=== PATIENT | male | born 1950 | race African-American/Black ===

== ENCOUNTER 2020-09-12 22:21 | Inpatient (IN) | payer MEDICARE ==
[~2020-09-12 22:21] MED LIST: Amiodarone 150 MG/3 ML VIAL ONE; Calcium Chloride 1 GM/10 ML Abboject SYRINGE ONE; EPINEPHrine 1 MG/10 ML Abboject SYRINGE ONE; Sodium Bicarb 50 MEQ/50 ML Abboject 8.4% SYRINGE ONE
[2020-09-12] MEDS ORDERED: Norepinephrine 8 MG/0.9% NS 250 ML ONE (22:42)
[2020-09-12 22:52] LABS: #Eosinphils 0.1 thou/uL (0.0-0.7); #Lymphocytes 3.2 thou/uL (1.20-3.40); #Monocytes 1.1 thou/uL (0.11-0.59); #Neutrophils 15.2 thou/uL (1.40-6.50); %Basophils 0.2 % (0.0-1.0); %Eosinophils 0.8 % (0.0-10.0); %Lymphocytes 16.4 % (21.0-51.0); %Monocytes 5.5 % (0.0-10.0); %Neutrophils 77.1 % (42.0-75.0); Hemoglobin 7.8 g/dL (14.0-18.0); Mean Corpuscular HGB CONC 30.4 g/dL (32.0-36.0); Mean Platelet Volume 10.4 fL (7.4-10.4); Platelet Count 283 thou/uL (130-400); Red Blood Cell (RBC) Count 2.51 mill/uL (4.70-6.10); White Blood Cell (WBC) Count 19.6 thou/uL (4.8-10.8)
[2020-09-12 22:53] LABS: Actual Bicarbonate (HCO3a) 8.6 mEq/L (22-28); Base Excess (BEa) -24.2 mEq/L (-2.0 to +3.0); CO2 Tension 52.9 mmHg (35.0-45.0); Calcium, Ionized (arterial) 1.49 mmol/L (1.12-1.30); Carboxyhemoglobin (COHb) 0.8 gm% (0.0-3.0); Hemoglobin (Hb) 8.4 g/dL (14.0-18.0); O2 Tension (PaO2), arterial 83.4 mmHg (> 80.0); Potassium - ABG Lab 5.18 mmol/L (3.70-5.30)
[2020-09-12 22:55] LABS: ALV-art Gradient 563.475 mmHg (0-20); Puncture Site LRA; pH, Arterial 6.83 (7.35-7.45)
--- NOTE | 2020-09-12 22:57 | RAD ---
RADIOGRAPH CHEST 1 VIEW: Supine DATE: 09/12/2020 TIME: 10:37 PM HISTORY: 70-year-old male in respiratory failure COMPARISON: 12/20/2007 FINDINGS: Supine positioning makes this study insensitive for the detection of pneumothorax. New finding of diffuse bilateral interstitial and alveolar infiltrates. Cardiomegaly. ETT 7.5 cm superior to dante. Esophagogastric tube distal tip at esophagogastric junction. AICD with left-sided generator, new since prior study. Right-sided implantable vascular access port with distal tip overlying right atrium, new since prior study. Defibrillation paddle overlies right upper lung zone. IMPRESSION: 1) diffuse bilateral mixed interstitial and alveolar densities: Pulmonary edema versus pneumonia. 2) status post intubation with endotracheal tube 3) esophagogastric tube distal tip at esophagogastric junction.
[2020-09-12 23:07] LABS: ALT (SGPT) 147 U/L (8-55); AST (SGOT) 225 U/L (5-34); Albumin 2.8 g/dL (3.4-4.8); Alkaline Phosphatase 50 U/L (40-110); Anion Gap 27 mmol/L (10-20); BUN (Urea Nitrogen) 22 mg/dL (8.4-25.7); Bilirubin, Total 0.4 mg/dL (0.2-1.2); Calc. Creatinine Clearance 0 mL/min (70-130); Calcium 10.1 mg/dL (7.8-10.44); Chloride 103 mmol/L (98-107); Globulin 2.3 g/dL (2.4-3.5); Glucose 425 mg/dL (80-115); Potassium 5.3 mmol/L (3.5-5.1); Protein, Total 5.1 g/dL (5.8-8.1); Sodium 133 mmol/L (136-145)
[2020-09-12 23:24] LABS: Carbon Dioxide 8 mmol/L (23-31)
[2020-09-12 23:27] LABS: CKMB 1.9 ng/mL (0-6.6)
[2020-09-12] MEDS ORDERED: Fentanyl CADD 100 ML IV SCH (23:30)
[2020-09-12 23:32] LABS: Bilirubin Negative (Negative); Blood, Urine 1+ (Negative); Clarity Turbid (Clear); Glucose, Urine (Dipstick) 100 mg/dL (Negative); Ketone, Urine Negative (Negative); Leukocyte Negative Leu/uL (Negative); Mucous/LPF Rare LPF (<2+); Nitrite Negative (Negative); Protein, Urine (Dipstick) 100 mg/dL (Neg-Trace); Specific Gravity, Urine 1.013 (1.002-1.036); Squamous Epithelial 0-3 HPF (0-3); Urobilinogen Normal mg/dL (Less than 2); WBC/HPF 0-3 HPF (0-3); pH, Urine 5.5 (5.0-9.0)
[2020-09-12 23:40] LABS: Bacteria/HPF 2+ HPF (None Seen)
[2020-09-12 23:45] LABS: SARS-CoV-2 NAA Rapid Test DETECTED (NotDetected)
[2020-09-13 00:52] LABS: Troponin I 0.257 ng/mL (< 0.028)
[2020-09-13] MEDS ORDERED: Propofol 1,000 MG/100 ML VIAL IV ONE ×2 (01:00→10:46)
[2020-09-13] MEDS ORDERED: Sodium Bicarbonate 100 MEQ in Dextrose 5% in Water 1,000 ML IV SCH ×2 (01:00→02:17)
--- NOTE | 2020-09-13 01:07 | PDOC.HHP ---
Hospitalist HPI Cardiac arrest History of Present Illness: This is a 70-year-old male patient with a history of lymphoma on chemotherapy, diabetes mellitus, hypertension, heart failure with reduced fraction, A. fib and recently positive for Covid who was brought in by air ambulance on account of cardiac arrest. Records noted that patient was having some chest pain with palpitations and noted that he received a shock from his defibrillator. During transport he became unresponsive and became pulseless. CPR was initiated and was defibrillated 2 times. He also received a dose of epinephrine. At the time of presentation here patient was still unresponsive and required further CPR lasting for over 30 minutes. ROSC was eventually obtained. He was intubated for airway protection. His labs at presentation showed WBC of 19.6, hemoglobin 9.8, platelet count 283. Chemistry showed Lactic acidosis of 15.1, sodium was 133, potassium 5.3, bicarbonate, creatinine 1.71, glucose 425, AST 225, ALT 147, troponin 0.1. His Covid test turned out positive. Chest x-ray showed diffuse bilateral mixed interstitial and alveolar densiti espulmonary edema versus pneumonia. EKG showed paced rhythm with no ST or T wave changes suggestive of ischemia. He received 2 L normal saline of bicarb. Also multiple resuscitation not associated medications. Central line was placed and was added on Levophed for blood pressure support. Hospitalist team was consulted to admit. Allergies/Adverse Reactions: Allergy/AdvReac Type Severity Reaction Status Date / Time gabapentin Allergy Verified 09/13/20 01:36 pregabalin [From Lyrica] Allergy Verified 09/13/20 01:36 tramadol Allergy Verified 09/13/20 01:37 Past History: PMHx: Heart failure with reduced ejection fraction, lymphoma, A. fib, PSHx: FHx: Social: Hospitalist HPI ROS ROS unobtainable: due to mental status Hospitalist Exam General - other findings: Obtunded, on ventilator support. Eye - other findings: Pupils reactive but sluggish Heart: RRR, no murmur, no gallops Respiratory - other findings: Coarse breath sounds bilaterally. Gastrointestinal: soft, non-tender, non-distended Extremities: no cyanosis, no clubbing Neurological - other findings: No spontaneous movements.Patient CD10 Psychiatric - other findings: Unable to assess Hospitalist Results Result Diagrams: 09/14/20 03:50 09/14/20 03:50 Lab results: Laboratory Last Values WBC 19.6 thou/uL (4.8-10.8) H 09/12/20 22:40 RBC 2.51 mill/uL (4.70-6.10) L 09/12/20 22:40 Hgb 7.8 g/dL (14.0-18.0) L 09/12/20 22:40 Hct 25.5 % (42.0-52.0) L 09/12/20 22:40 MCV 102.0 fL (78.0-98.0) H 09/12/20 22:40 MCH 31.0 pg (27.0-31.0) 09/12/20 22:40 MCHC 30.4 g/dL (32.0-36.0) L 09/12/20 22:40 RDW 17.0 % (11.5-14.5) H 09/12/20 22:40 Plt Count 283 thou/uL (130-400) 09/12/20 22:40 MPV 10.4 fL (7.4-10.4) 09/12/20 22:40 Neutrophils % 77.1 % (42.0-75.0) H 09/12/20 22:40 Lymphocytes % 16.4 % (21.0-51.0) L 09/12/20 22:40 Monocytes % 5.5 % (0.0-10.0) 09/12/20 22:40 Eosinophils % 0.8 % (0.0-10.0) 09/12/20 22:40 Basophils % 0.2 % (0.0-1.0) 09/12/20 22:40 Neutrophils # 15.2 thou/uL (1.40-6.50) H 09/12/20 22:40 Lymphocytes # 3.2 thou/uL (1.20-3.40) 09/12/20 22:40 Monocytes # 1.1 thou/uL (0.11-0.59) H 09/12/20 22:40 Eosinophils # 0.1 thou/uL (0.0-0.7) 09/12/20 22:40 Basophils # 0.0 thou/uL (0.0-0.2) 09/12/20 22:40 Specimen Type ARTERIAL 09/12/20 22:37 Puncture Site LRA 09/12/20 22:37 Bicarbonate Actual 8.6 mEq/L (22-28) L 09/12/20 22:37 ABG pH 6.83 (7.35-7.45) L* 09/12/20 22:37 ABG pCO2 52.9 mmHg (35.0-45.0) H 09/12/20 22:37 ABG pO2 83.4 mmHg (> 80.0) H 09/12/20 22:37 ABG O2 Sat (Measured) 82.0 % (94.0-98.0) L* 09/12/20 22:37 ABG O2 Content 9.7 vol% (18.0-21.0) L 09/12/20 22:37 ABG Base Excess -24.2 mEq/L (-2.0 to +3.0) L 09/12/20 22:37 ABG Hematocrit 25.0 % (42.0-52.0) L 09/12/20 22:37 ABG Hemoglobin 8.4 g/dL (14.0-18.0) L 09/12/20 22:37 ABG Oxyhemoglobin 81.1 % (94.0-98.0) L 09/12/20 22:37 ABG Carboxyhemoglobin 0.8 gm% (0.0-3.0) 09/12/20 22:37 ABG Methemoglobin 0.30 gm% (0.04-1.52) 09/12/20 22:37 ABG Deoxyhemoglobin 17.8 % (0.0-2.9) H 09/12/20 22:37 Jean Pierre Test POSITIVE 09/12/20 22:37 A-a O2 Gradient 563.475 mmHg (0-20) H 09/12/20 22:37 Sodium 135 mmol/L (135-148) 09/12/20 22:37 Potassium 5.18 mmol/L (3.70-5.30) 09/12/20 22:37 Chloride 101 mmol/L (98-106) 09/12/20 22:37 Ionized Calcium 1.49 mmol/L (1.12-1.30) H 09/12/20 22:37 Mode of Support SIMV 09/12/20 22:37 Mechanical Rate 22 min 09/12/20 22:37 Inspired O2 100 % 09/12/20 22:37 Tidal Volume 500 ml 09/12/20 22:37 Pressure Support 10 cmH2O 09/12/20 22:37 PEEP or CPAP 12.0 cmH2O 09/12/20 22:37 Sodium 133 mmol/L (136-145) L 09/12/20 22:39 Potassium 5.3 mmol/L (3.5-5.1) H 09/12/20 22:39 Chloride 103 mmol/L (98-107) 09/12/20 22:39 Carbon Dioxide 8 mmol/L (23-31) L* 09/12/20 22:39 Anion Gap 27 mmol/L (10-20) H 09/12/20 22:39 BUN 22 mg/dL (8.4-25.7) 09/12/20 22:39 Creatinine 1.71 mg/dL (0.7-1.3) H 09/12/20 22:39 Estimated GFR (MDRD) 48 09/12/20 22:39 Glucose 425 mg/dL (80-115) H 09/12/20 22:39 POC Glucose 327 mg/dL (70-100) H 09/12/20 22:29 Lactic Acid 15.1 mmol/L (0.5-2.2) H* 09/12/20 20:37 Calcium 10.1 mg/dL (7.8-10.44) 09/12/20 22:39 Total Bilirubin 0.4 mg/dL (0.2-1.2) 09/12/20 22:39 AST 225 U/L (5-34) H 09/12/20 22:39 ALT 147 U/L (8-55) H 09/12/20 22:39 Alkaline Phosphatase 50 U/L (40-110) 09/12/20 22:39 CK-MB (CK-2) 1.9 ng/mL (0-6.6) 09/12/20 22:39 Troponin I 0.257 ng/mL (< 0.028) H 09/13/20 00:14 Serum Total Protein 5.1 g/dL (5.8-8.1) L 09/12/20 22:39 Albumin 2.8 g/dL (3.4-4.8) L 09/12/20 22:39 Globulin 2.3 g/dL (2.4-3.5) L 09/12/20 22:39 Albumin/Globulin Ratio 1.2 g/dL (1.2-2.2) 09/12/20 22:39 Urine Color Light-Yellow (Yellow) 09/12/20 23:02 Urine Clarity Turbid (Clear) A 09/12/20 23:02 Urine pH 5.5 (5.0-9.0) 09/12/20 23:02 Ur Specific [place] 1.013 (1.002-1.036) 09/12/20 23: Urine Protein 100 mg/dL (Neg-Trace) A 09/12/20 23: Urine Glucose (UA) 100 mg/dL (Negative) A 09/12/20 23: Urine Ketones Negative mg/dL (Negative) 09/12/20 23: Urine Blood 1+ (Negative) A 09/12/20 23: Urine Nitrite Negative (Negative) 09/12/20 23: Urine Bilirubin Negative (Negative) 09/12/20 23: Urine Urobilinogen Normal mg/dL (Less than 2) 09/12/20 23:02 Ur Leukocyte Esterase Negative Vladimir/uL (Negative) 09/12/20 23:02 Urine RBC 11-20 HPF (0-3) A 09/12/20 23:02 Urine WBC 0-3 HPF (0-3) 09/12/20 23:02 Ur Squamous Epith Cells 0-3 HPF (0-3) 09/12/20 23:02 Amorphous Crystals 1+ HPF (None Seen) A 09/12/20 23:02 Urine Bacteria 2+ HPF (None Seen) A 09/12/20 23:02 Hyaline Casts 7-10 LPF (0-3) A 09/12/20 23:02 Urine Mucus Rare LPF (<2+) 09/12/20 23: Influenza A RNA INAAT Not Detected (NotDetected) 09/12/20 22:51 Influenza B RNA INAAT Not Detected (NotDetected) 09/12/20 22:51 SARS-CoV-2 Rap RNA(RT-PCR) DETECTED (NotDetected) A* 09/12/20 22:51 Hospitalist H&P A/P Plan: This is a 70-year-old male patient with a history of heart failure with reduced ejection fraction, AICD in place, CKD, recently diagnosed with lymphoma on chemotherapy recent Covid diagnosis, was brought into the ED on account of cardiac arrest. ROSC was achieved and is currently on ventilator and pressor support. Cardiac arrest Unclear etiology. No concerning EKG changes Possible arrhythmia as requested that his AICD fired. Could be PE given his history of lymphoma with high predisposition although he appears to have been on Eliquis. Combination of Covid/lymphoma could make him quite hypercoagulable Continue ventilator support CTA to evaluate for PEstart full anticoagulation once post Received hypothermia Pulmonary evaluation in morning. Acute hypoxic respiratory failure Hypoxia could be due to pulmonary edema, pneumonia due to Covid, bacterial pneumonia Patient intubated for airway protection given his cardiac arrest Patient on 100% FiO2 with saturation in the 90s. Initial bicarb was 6.8 and improved to 7.08 Continue bicarb drip monitor ABG Appreciate pulmonology input. Pneumonia due to Covid Patient Covid positive with bilateral infiltrates Start steroids Vitamin C/D and zinc CRP, ferritin and D-dimer Consider remdesivir/plasma Hyperkalemia Presenting potassium of 5.3 We will monitor Consult nephrology if worsens. Severe metabolic acidosis Secondary to lactic acidosis Lactic acid at 15we will trend Received IV fluids Septic shock Leukocytosis with respiratory failure with shock We will start vancomycin and Zosyn Received IV fluids Trend lactate Follow-up blood cultures Heart failure with reduced ejection fraction EF in the 20s as per his course of white documents. We will monitor closely and restrict fluids as much as possible. A. fib Currently not in RVR We will monitorpatient on home Eliquis Resume anticoagulants once verified. Recently diagnosed lymphoma Currently receiving chemotherapy Consult heme-onc if indicated. General poor clinical prognosis I discussed with daughter and mother about clinical state and explained the prognosis however they still wanted full code We will consult palliative care for goals of care discussion VT prophylaxisLovenox CODE STATUSfull code
[2020-09-13] MEDS ORDERED: Fentanyl BOLUS 250 ML IVPB PRN (01:15)
[2020-09-13] MEDS ORDERED: Morphine 2 MG/ML VIAL SLOW IVP PRN (01:15)
[2020-09-13] MEDS ORDERED: Ventilator Sedation Protocol 1 EACH FS SCH (01:15)
[2020-09-13] MEDS ORDERED: Propofol 1,000 MG/100 ML VIAL IV PRN (01:15)
[2020-09-13] MEDS ORDERED: DISCONTINUE PREVIOUS NARCOTIC PAIN MEDICATIONS AND BENZODIAZEPINES FS SCH (01:15)
[2020-09-13] MEDS ORDERED: Lorazepam 2 MG/ML VIAL SLOW IVP PRN (01:15)
[2020-09-13] MEDS ORDERED: Propofol BOLUS 1,000 MG/100 ML VIAL IV PRN (01:15)
[2020-09-13 01:50] LABS: Actual Bicarbonate (HCO3a) 9.7 mEq/L (22-28); Base Excess (BEa) -18.9 mEq/L (-2.0 to +3.0); CO2 Tension 33.2 mmHg (35.0-45.0); Calcium, Ionized (arterial) 1.24 mmol/L (1.12-1.30); Carboxyhemoglobin (COHb) 0.3 gm% (0.0-3.0); Hemoglobin (Hb) 9.1 g/dL (14.0-18.0); O2 Tension (PaO2), arterial 185.4 mmHg (> 80.0)
[2020-09-13 02:35] LABS: Hemoglobin 8.7 g/dL (14.0-18.0); Mean Corpuscular HGB CONC 29.8 g/dL (32.0-36.0); Mean Corpuscular Hemoglobin 29.8 pg (27.0-31.0); Mean Platelet Volume 10.5 fL (7.4-10.4); Platelet Count 339 thou/uL (130-400); RBC Distribution Width 16.8 % (11.5-14.5); Red Blood Cell (RBC) Count 2.91 mill/uL (4.70-6.10); White Blood Cell (WBC) Count 43.7 thou/uL (4.8-10.8)
[2020-09-13 02:47] LABS: Band 17 % (5-11); Hypochromia SLIGHT = 6-15 cells (100X) (0-5/hpf); Lymphocytes 2 % (21-51); MDiff Complete? YES; Monocytes 17 % (0-10); Neutrophil 64 % (42-75); Platelet Morphology Comment Appears Adequate
[2020-09-13 02:55] LABS: ALT (SGPT) 367 U/L (8-55); AST (SGOT) 707 U/L (5-34); Alkaline Phosphatase 114 U/L (40-110); Anion Gap 28 mmol/L (10-20); BUN (Urea Nitrogen) 26 mg/dL (8.4-25.7); Bilirubin, Total 1.3 mg/dL (0.2-1.2); Calc. Creatinine Clearance 42 mL/min (70-130); Carbon Dioxide 8 mmol/L (23-31); Chloride 104 mmol/L (98-107); Globulin 2.9 g/dL (2.4-3.5); Glucose 357 mg/dL (80-115); Magnesium 2.1 mg/dL (1.6-2.6); Protein, Total 5.9 g/dL (5.8-8.1); Sodium 134 mmol/L (136-145)
[2020-09-13] MEDS ORDERED: Lorazepam 2 MG/ML VIAL ONE (04:40)
[2020-09-13] MEDS ORDERED: Norepinephrine 8 MG/0.9% NS 250 ML ONE ×4 (04:43→16:56)
[2020-09-13] MEDS ORDERED: Vancomycin 1.5 GRAM/300 ML BAG 1.5 GM in Premix Bag 1 BAG IVPB SCH (05:00)
[2020-09-13] MEDS: Norepinephrine 8 MG/0.9% NS 250 ML IVPB PRN ×2 (05:02→20:33)
[2020-09-13 05:07] LABS: Puncture Site LBA; pH, Arterial 7.08 (7.35-7.45)
[2020-09-13] MEDS ORDERED: Piperacillin/Tazobactam 4.5 GM VIAL ONE ×2 (05:23→17:02)
[2020-09-13] MEDS ORDERED: Sodium Chloride 0.9% 100 ML ONE (05:23)
[2020-09-13] MEDS ORDERED: Insulin Regular 300 UNITS/3 ML VIAL IVP SCH (05:30)
[2020-09-13] MEDS ORDERED: Insulin Regular 300 UNITS/3 ML VIAL ONE (05:33)
[2020-09-13] MEDS ORDERED: Calcium Gluc 4.6 MEQ/10 ML (100 MG/ML) ONE (05:33)
[2020-09-13] MEDS ORDERED: Dextrose 50% Abboject 50 ML SYRINGE ONE (05:33)
[2020-09-13] MEDS ORDERED: Calcium Gluconate 4.6 MEQ in Sodium Chloride 0.9% 100 ML IVPB SCH (05:45)
[2020-09-13] MEDS ORDERED: Dextrose 25% Abboject 10 ML SYRINGE SLOW IVP SCH (05:45)
[2020-09-13 05:55] LABS: Lactic Acid 10.3 mmol/L (0.5-2.2)
[2020-09-13 06:07] LABS: Troponin I 0.716 ng/mL (< 0.028)
[2020-09-13] MEDS: Piperacillin/Tazobactam 4.5 GM in Sodium Chloride 0.9% 100 ML IVPB SCH ×3 (06:19→21:59)
[2020-09-13] MEDS ORDERED: Enoxaparin Sodium 80 MG/0.8 ML SYRINGE SC SCH (06:30)
[2020-09-13] MEDS ORDERED: Enoxaparin Sodium 80 MG/0.8 ML SYRINGE ONE (07:05)
[2020-09-13 07:36] LABS: Actual Bicarbonate (HCO3a) 11.6 mEq/L (22-28); Base Excess (BEa) -17.4 mEq/L (-2.0 to +3.0); CO2 Tension 40.4 mmHg (35.0-45.0); Calcium, Ionized (arterial) 1.22 mmol/L (1.12-1.30); Carboxyhemoglobin (COHb) 0.3 gm% (0.0-3.0); Hemoglobin (Hb) 9.2 g/dL (14.0-18.0); O2 Tension (PaO2), arterial 101.3 mmHg (> 80.0); Potassium - ABG Lab 5.32 mmol/L (3.70-5.30)
[2020-09-13 07:41] LABS: Puncture Site RRA; pH, Arterial 7.08 (7.35-7.45)
--- NOTE | 2020-09-13 08:06 | CT ---
CTA OF THE CHEST UTILIZING IV CONTRAST PE PROTOCOL 3D REFORMATTED IMAGING: Date: 09/13/2020 COMPARISON: Prior chest radiograph dated 09/12/2020. FINDINGS: The patient is intubated with gastric catheter placement. There is cardiomegaly. There is perihilar i nterstitial ground-glass opacity suspicious for edema. There is prominent consolidation of both lower lobes suspicious for aspiration or pneumonia. No central or segmental pulmonary embolus is evident. There is a right-sided IJ vascular catheter. There is a left-sided AICD. Visualized upper abdomen de monstrates reflux of contrast within the IVC, hepatic veins, and right renal vein. No definite acute osseous abnormality is evident. There is scattered degenerative and osteoarthritic change. IMPRESSION: 1. Findings suspicious for moderate CHF. 2. Bibasilar consolidation suspicious for aspiration or pneumonia. 3. No central or segmental pulmonary embolus demonstrated. POS: BH
[2020-09-13] MEDS ORDERED: Enoxaparin Sodium 40 MG/0.4 ML SYRINGE SC SCH (09:00)
[2020-09-13] MEDS ORDERED: Iopamidol-370 76% 500 ML 1 ML ONE (10:32)
--- NOTE | 2020-09-13 11:31 | CON ---
DATE OF CONSULTATION: HISTORY OF PRESENT ILLNESS: Vinayak Centeno is a 70-year-old black male with history of ejection fraction of 20%, biventricular ICD, and chronic atrial fibrillation. He also has a recent diagnosis of lymphoma and is on chemotherapy. The patient is intubated and cannot give any history. There is no family present. Yesterday, he apparently noted chest pain and palpitations and received a shock from his defibrillator. Paramedics were called. He then became unresponsive and pulseless and CPR was initiated and defibrillated x2 as well as given IV epinephrine. Apparently, CPR was in progress for over 30 minutes when he arrived here. He was then intubated and apparently coded here in the emergency room, but at the present time has a pulse. PAST MEDICAL HISTORY: Cardiomyopathy of unknown etiology. Ejection fraction of 20%. Chronic atrial fibrillation, lymphoma. MEDICATIONS: Unknown. ALLERGIES: UNKNOWN. SOCIAL HISTORY: Unobtainable. FAMILY HISTORY: Unobtainable. REVIEW OF SYSTEMS: Unobtainable. PHYSICAL EXAMINATION: VITAL SIGNS: Blood pressure 108/71, pulse of 84. Physical examination was deferred due to COVID positivity. LABORATORY DATA: EKG revealed biventricular pacing. Chest x-ray reveals a biventricular defibrillator in place with bilateral infiltrates. Chest CTA revealed no evidence of pulmonary embolism. Findings were suggestive of moderate congestive heart failure. White count 06297, hemoglobin 8.7, hematocrit 29.1, platelets 339,000. PH is low at 6.83. Most recent blood gas; pH 7.08, pCO2 of 40.4, PO2 of 101.3. Troponin I 0.716. Sodium 134, potassium 6.0, chloride 104, carbon dioxide 8, BUN 26, creatinine 2.01. AST is increased to 707, ALT up to 367. IMPRESSION: 1. Cardiac arrest apparently with ICD discharge and then prolonged CPR. 2. Known ejection fraction of 20%. 3. Status post biventricular ICD placement. 4. History of lymphoma, currently on chemotherapy. 5. COVID positive. 6. Acute kidney injury and elevated liver function test, probably due to hepatic congestion. PLAN: The patient is being treated with steroids for his COVID positivity. He will continue to be maintained on pressors. He likely has had anoxic brain injury with prolonged CPR. I do not feel that any emergent cardiac intervention is warranted. I will follow the patient with you. Job ID: [id number] [facility]
--- NOTE | 2020-09-13 14:12 | PDOC.HOSPP ---
- Subjective Encounter Date: 09/13/20 Encounter Time: 11:55 Subjective: Patient seen he is on vent. Daughter came by, [Patient lives with his ]; discussed the care plan with her today. His ICD was checked to roughly a month ago in August. . Patient is getting bicarbonate infusion. Severe metabolic acidosis. I talked to Dr. Howard's groove and who would see him. Both cardiology, renal and pulmonary on board - Objective Vital Signs & Weight: Vital Signs (12 hours) Temp Pulse Resp BP BP Pulse Ox 09/13/20 07:30 84 108/71 09/13/20 05:02 91.2 F L 92 30 H 112/82 94 L 09/13/20 02:33 106 H 90/55 L 96 Weight Weight 185 lb 3.013 oz Result Diagrams: 09/13/20 01:41 09/13/20 01:41 Additional Labs: Accuchecks 09/12/20 22:29 POC Glucose 327 H Hospitalist ROS - Medication Medications: Active Medications Generic Name Dose Route Start Last Admin Trade Name Freq PRN Reason Stop Dose Admin Norepinephrine Bitartrate 250 mls @ 0 mls/hr 09/13/20 01:02 09/13/20 05:02 Levophed IVPB 250 mls PRN PRN Administration To maintain MAP > 65 Protocol Titrate Piperacillin Sod/Tazobactam 100 mls @ 200 mls/hr 09/13/20 06:00 09/13/20 06:19 Sod 4.5 gm/ Sodium Chloride IVPB 100 mls Q8HR MATEO Administration Propofol 20 mg 09/13/20 01:15 09/13/20 01:42 Propofol Bolus 1,000 Mg/100 Ml Vial IV 10/13/20 01:15 20 mg Q5MIN PRN Administration BREAKTHROUGH AGITATION Sodium Chloride 10 ml 09/13/20 09:00 09/13/20 09:32 Flush - Normal Saline 10 Ml Syringe IVF 10 ml Q12HR MATEO Administration Hospitalist Exam Vitals: Vital Signs (12 hours) Temp Pulse Resp BP BP Pulse Ox 09/13/20 07:30 84 108/71 09/13/20 05:02 91.2 F L 92 30 H 112/82 94 L 09/13/20 02:33 106 H 90/55 L 96 Weight Weight 185 lb 3.013 oz General - other findings: On vent Eye: PERRL ENT: normocephalic atraumatic Neck: supple Respiratory: normal chest expansion Psychiatric: not oriented Hosp A/P - Plan 70-year-old male patient with a history of heart failure with reduced ejection fraction, AICD in place, CKD, recently diagnosed with lymphoma on chemotherapy recent Covid diagnosis, was brought into the ED on account of cardiac arrest. ROSC was achieved and is currently on ventilator and pressor support. Cardiac arrest -Prolonged CPR -Possible anoxic brain injury Possible arrhythmia as requested that his AICD fired. Continue ventilator support -On pressors CTA to evaluate for PEnegative PE Received hypothermia Acute hypoxic respiratory failure Hypoxia could be due to pulmonary edema, pneumonia due to Covid, bacterial pneumonia --On vent Pneumonia due to Covid Patient Covid positive with bilateral infiltrates Start steroids Vitamin C/D and zinc CRP, ferritin and D-dimer Consider remdesivir/plasma Hyperkalemia Severe metabolic acidosis Secondary to lactic acidosis -Renal following with Septic shock --Follow-up with blood cultures --vancomycin and Zosyn -On pressor Heart failure with reduced ejection fraction EF in the 20s -Dr. Dr. Howard's group -likely they will see him this afternoon A. fib Currently not in RVR -eilquis Recently diagnosed lymphoma Currently receiving chemotherapy . General poor clinical prognosis -I have seen the daughter this morning -Will update her as the clinical course evolves -Full code for now. -Palliative consult placed by the admitter -Neurology consult to evaluate for possible anoxic brain injury
--- NOTE | 2020-09-13 16:35 | CON ---
NEUROLOGY CONSULTATION DATE OF CONSULTATION: 09/13/2020 REASON FOR CONSULTATION: Cardiac arrest. HISTORY OF PRESENT ILLNESS: Mr. Vinayak Centeno is a 70-year-old male with medical history significant for lymphoma on chemotherapy, diabetes, hypertension, congestive heart failure with reduced ejection fraction, atrial fibrillation, and recently positive for COVID, brought by ambulance because of cardiac arrest. No family is available at the bedside, so history is obtained from review of the medical records. Per record, he had chest pain and palpitation and received shock from defibrillator. During transport, he became unresponsive and pulseless, so CPR was initiated and he was defibrillated 2 times. He also received a dose of epinephrine. COVID was tested, it turned out positive. Chest x-ray showed diffuse bilateral mixed interstitial and alveolar densities, pulmonary edema versus pneumonia. He was intubated and sedated and started on Levophed for blood pressure support. Neurology was consulted regarding prognosis. ALLERGIES: GABAPENTIN, PREGABALIN, TRAMADOL. REVIEW OF SYSTEMS: Unobtainable due to the patient's mental status. PAST MEDICAL HISTORY: Heart failure with reduced ejection fraction, lymphoma, atrial fibrillation. PAST SURGICAL HISTORY: Not significant. FAMILY HISTORY: No significant family history. SOCIAL HISTORY: No documented history of alcohol or illegal drug abuse. PHYSICAL EXAMINATION: 117/68 88 98 General: Ill-appearing CVS: Regular rate and rhythm Chest: Rales Abdomen: Soft Neurologic: Mental status: The patient is obtunded, intubated and sedated. Does not open eyes to verbal stimuli. Cranial nerves; pupils 3 mm, round, very sluggishly responsive to light. Face symmetric. Tongue midline. No gaze preference or roving eye movement seen. Motor, muscle tone and bulk are normal. No spontaneous movement of all 4 extremities seen. Sensory, no withdrawal of all 4 extremities to nailbed pressure. Cerebellar; unable to perform secondary to sedation. Gait deferred due to the patient's safety reason and unable due to sedation. DATA REVIEWED: I reviewed the labs which were significant for white count of 43.7, hemoglobin of 8.7, hematocrit 29.1, and also hyponatremia 134 and hyperkalemia 6 and BUN of 26 and creatinine of 2.01, hyperglycemia 357. Lab results: Laboratory Last Values WBC 19.6 thou/uL (4.8-10.8) H 09/12/20 22:40 RBC 2.51 mill/uL (4.70-6.10) L 09/12/20 22:40 Hgb 7.8 g/dL (14.0-18.0) L 09/12/20 22:40 Hct 25.5 % (42.0-52.0) L 09/12/20 22:40 MCV 102.0 fL (78.0-98.0) H 09/12/20 22:40 MCH 31.0 pg (27.0-31.0) 09/12/20 22:40 MCHC 30.4 g/dL (32.0-36.0) L 09/12/20 22:40 RDW 17.0 % (11.5-14.5) H 09/12/20 22:40 Plt Count 283 thou/uL (130-400) 09/12/20 22:40 MPV 10.4 fL (7.4-10.4) 09/12/20 22:40 Neutrophils % 77.1 % (42.0-75.0) H 09/12/20 22:40 Lymphocytes % 16.4 % (21.0-51.0) L 09/12/20 22:40 Monocytes % 5.5 % (0.0-10.0) 09/12/20 22:40 Eosinophils % 0.8 % (0.0-10.0) 09/12/20 22:40 Basophils % 0.2 % (0.0-1.0) 09/12/20 22:40 Neutrophils # 15.2 thou/uL (1.40-6.50) H 09/12/20 22:40 Lymphocytes # 3.2 thou/uL (1.20-3.40) 09/12/20 22:40 Monocytes # 1.1 thou/uL (0.11-0.59) H 09/12/20 22:40 Eosinophils # 0.1 thou/uL (0.0-0.7) 09/12/20 22:40 Basophils # 0.0 thou/uL (0.0-0.2) 09/12/20 22:40 Specimen Type ARTERIAL 09/12/20 22:37 Puncture Site LRA 09/12/20 22:37 Bicarbonate Actual 8.6 mEq/L (22-28) L 09/12/20 22:37 ABG pH 6.83 (7.35-7.45) L* 09/12/20 22:37 ABG pCO2 52.9 mmHg (35.0-45.0) H 09/12/20 22:37 ABG pO2 83.4 mmHg (> 80.0) H 09/12/20 22:37 ABG O2 Sat (Measured) 82.0 % (94.0-98.0) L* 09/12/20 22:37 ABG O2 Content 9.7 vol% (18.0-21.0) L 09/12/20 22:37 ABG Base Excess -24.2 mEq/L (-2.0 to +3.0) L 09/12/20 22:37 ABG Hematocrit 25.0 % (42.0-52.0) L 09/12/20 22:37 ABG Hemoglobin 8.4 g/dL (14.0-18.0) L 09/12/20 22:37 ABG Oxyhemoglobin 81.1 % (94.0-98.0) L 09/12/20 22:37 ABG Carboxyhemoglobin 0.8 gm% (0.0-3.0) 09/12/20 22:37 ABG Methemoglobin 0.30 gm% (0.04-1.52) 09/12/20 22:37 ABG Deoxyhemoglobin 17.8 % (0.0-2.9) H 09/12/20 22:37 Jean Pierre Test POSITIVE 09/12/20 22:37 A-a O2 Gradient 563.475 mmHg (0-20) H 09/12/20 22:37 Sodium 135 mmol/L (135-148) 09/12/20 22:37 Potassium 5.18 mmol/L (3.70-5.30) 09/12/20 22:37 Chloride 101 mmol/L (98-106) 09/12/20 22:37 Ionized Calcium 1.49 mmol/L (1.12-1.30) H 09/12/20 22:37 Mode of Support SIMV 09/12/20 22:37 Mechanical Rate 22 min 09/12/20 22:37 Inspired O2 100 % 09/12/20 22:37 Tidal Volume 500 ml 09/12/20 22:37 Pressure Support 10 cmH2O 09/12/20 22:37 PEEP or CPAP 12.0 cmH2O 09/12/20 22:37 Sodium 133 mmol/L (136-145) L 09/12/20 22:39 Potassium 5.3 mmol/L (3.5-5.1) H 09/12/20 22:39 Chloride 103 mmol/L (98-107) 09/12/20 22:39 Carbon Dioxide 8 mmol/L (23-31) L* 09/12/20 22:39 Anion Gap 27 mmol/L (10-20) H 09/12/20 22:39 BUN 22 mg/dL (8.4-25.7) 09/12/20 22:39 Creatinine 1.71 mg/dL (0.7-1.3) H 09/12/20 22:39 Estimated GFR (MDRD) 48 09/12/20 22:39 Glucose 425 mg/dL (80-115) H 09/12/20 22:39 POC Glucose 327 mg/dL (70-100) H 09/12/20 22:29 Lactic Acid 15.1 mmol/L (0.5-2.2) H* 09/12/20 20:37 Calcium 10.1 mg/dL (7.8-10.44) 09/12/20 22:39 Total Bilirubin 0.4 mg/dL (0.2-1.2) 09/12/20 22:39 AST 225 U/L (5-34) H 09/12/20 22:39 ALT 147 U/L (8-55) H 09/12/20 22:39 Alkaline Phosphatase 50 U/L (40-110) 09/12/20 22:39 CK-MB (CK-2) 1.9 ng/mL (0-6.6) 09/12/20 22:39 Troponin I 0.257 ng/mL (< 0.028) H 09/13/20 00:14 Serum Total Protein 5.1 g/dL (5.8-8.1) L 09/12/20 22:39 Albumin 2.8 g/dL (3.4-4.8) L 09/12/20 22:39 Globulin 2.3 g/dL (2.4-3.5) L 09/12/20 22:39 Albumin/Globulin Ratio 1.2 g/dL (1.2-2.2) 09/12/20 22:39 Urine Color Light-Yellow (Yellow) 09/12/20 23: Urine Clarity Turbid (Clear) A 09/12/20 23: Urine pH 5.5 (5.0-9.0) 09/12/20 23: Ur Specific [place] 1.013 (1.002-1.036) 09/12/20 23: Urine Protein 100 mg/dL (Neg-Trace) A 09/12/20 23: Urine Glucose (UA) 100 mg/dL (Negative) A 09/12/20 23: Urine Ketones Negative mg/dL (Negative) 09/12/20 23: Urine Blood 1+ (Negative) A 09/12/20 23: Urine Nitrite Negative (Negative) 09/12/20 23: Urine Bilirubin Negative (Negative) 09/12/20 23: Urine Urobilinogen Normal mg/dL (Less than 2) 09/12/20 23: Ur Leukocyte Esterase Negative Vladimir/uL (Negative) 09/12/20 23: Urine RBC 11-20 HPF (0-3) A 09/12/20 23: Urine WBC 0-3 HPF (0-3) 09/12/20 23:02 Ur Squamous Epith Cells 0-3 HPF (0-3) 09/12/20 23: Amorphous Crystals 1+ HPF (None Seen) A 09/12/20 23: Urine Bacteria 2+ HPF (None Seen) A 09/12/20 23: Hyaline Casts 7-10 LPF (0-3) A 09/12/20 23: Urine Mucus Rare LPF (<2+) 09/12/20 23:02 Influenza A RNA INAAT Not Detected (NotDetected) 09/12/20 22:51 Influenza B RNA INAAT Not Detected (NotDetected) 09/12/20 22:51 SARS-CoV-2 Rap RNA(RT-PCR) DETECTED (NotDetected) A* 02 22:51 ASSESSMENT AND PLAN: Mr. Vinayak Centeno is a 70-year-old male with history significant for congestive heart failure with reduced ejection fraction, AICD in place, chronic kidney disease and recently diagnosed with lymphoma, status post chemotherapy and tested positive for COVID, brought to the emergency room with cardiac arrest. The exam is, however, limited secondary to sedation prognosis seems poor for functional meaningful recovery. Consider head CT to evaluate for acute intracranial process. EEG could not be completed secondary to the patient's COVID positive status. Neuro checks every 2 hours. Continue medical management per primary team and Pulmonology. We will continue to follow. Thank you for the consult. Job ID: [id number] MTDD
--- NOTE | 2020-09-13 18:42 | CON ---
DATE OF CONSULTATION: 09/13/2020 HISTORY: Mr. Centeno is a 70-year-old male, who has severe cardiomyopathy and a defibrillator in place. He also has lymphoma. He apparently had a defibrillator shock and was unresponsive when the machine stuffer automatic arrived. He had over 30 minutes of CPR. He was also coded again in the emergency department. I was consulted. PAST MEDICAL HISTORY: Remarkable for the above. SOCIAL HISTORY: It is unknown whether he is a smoker or drinker. FAMILY HISTORY: Unknown. REVIEW OF SYSTEMS: Not obtainable. PHYSICAL EXAMINATION: GENERAL: He is hypothermic. VITAL SIGNS: Blood pressure is around 100 systolic, heart rates in 80s. LUNGS: Remarkable for equal breath sounds. HEART: Regular rhythm. ABDOMEN: Soft. He is mechanically ventilated. LABORATORY DATA: White count at 1 o'clock this morning was 43,000, hemoglobin 8.7, platelets 339,000. Sodium 134, potassium 6, chloride 104, bicarb 8, BUN 26, creatinine 2.01. COVID serology is positive. Urinalysis is unremarkable. Blood gas shows pH 7.08, CO2 of 40, pO2 of 103, mechanical ventilatory rates at 30. IMPRESSION: Status post prolonged CPR with severe cardiomyopathy, likely an anoxic brain injury. My opinion is he is unlikely to survive. Family should be contacted and his code status should be addressed. It would be of no benefit for him to go through another code. Critical care time 30 min. Job ID: [id number] MTDD
[2020-09-13] MEDS ORDERED: FLU VACC QS2020-21(65YR UP)/PF 240 MCG/0.7 ML SYRINGE IM ONE (19:45)
--- NOTE | 2020-09-13 20:23 | CON ---
DATE OF CONSULTATION: CONSULTING PHYSICIAN: Latisha Joseph MD REQUESTING PHYSICIAN: Brady Hobson MD REASON FOR CONSULTATION: Acute on chronic kidney disease as well as severe hyperkalemia, metabolic acidosis. IMPRESSION: 1. Acute on chronic renal disease. This is likely hemodynamically mediated in the context of cardiac arrest. 2. Metabolic acidosis. This is likely in the context of lactic acidosis resulting from cardiac arrest. 3. Hyperkalemia, likely due to cellular shift of potassium given the metabolic acidosis in this patient compounded by reduced EGFR due to acute kidney injury. 4. Cardiac arrest, status post prolonged CPR. 5. Possible anoxic brain injury. 6. Mild hyponatremia. PLAN: 1. The patient to continue bicarb drip to address the metabolic acidosis with cellular shift of potassium. 2. The patient may have suffered significant anoxic brain injury. Therefore, for now, we will focus on medical management of the metabolic acidosis and the hyperkalemia. However, this medical approach does not address these conditions and the patient remains full code and reviewed option of treatment, still needed hemodialysis might become indicated. 3. Further management will be dependent on the clinical course. HISTORY OF PRESENT ILLNESS: History is that of a 70-year-old gentleman with cardiomyopathy status post AICD who apparently had some cardiac arrhythmias cardiac arrest. The patient did undergo prolonged CPR by the EMS . The patient clinically is intubated and could not offer much of any history. The patient noted with elevated potassium at 5.3 with bicarb of 8 with a pH of 7.08. As a result of these findings, decision was taken to involve Renal in the management of this case. PAST MEDICAL HISTORY: Significant for cardiomyopathy status post AICD, possible chronic kidney disease. Recent diagnosis of lymphoma and also atrial fibrillation. ALLERGIES: PREGABALIN, TRAMADOL, AND GABAPENTIN. FAMILY HISTORY: Could not be obtained from this patient. SOCIAL HISTORY: Could not be obtained from this patient. REVIEW OF SYSTEMS: Could not be done. LABORATORY INVESTIGATION: Significant as documented in the body of the history. PHYSICAL EXAMINATION: GENERAL: The patient is found to be intubated. VITAL SIGNS: Afebrile, temperature 91.2 as the patient is on hypothermic protocol, pulse of 84, blood pressure of 108/71, respiratory rate of 10, O2 saturation of 94%. HEENT: Remarkable for endotracheal tube in place. CARDIOVASCULAR SYSTEM: First and second heart sounds heard. RESPIRATORY SYSTEM: Vented sounds. DIGESTIVE SYSTEM: Benign abdomen. EXTREMITIES: No peripheral edema. SKIN: No new gross rash. LYMPHATICS: No peripheral lymphadenopathy. In summary, a 70-year-old gentleman who has cardiac arrest, now with severe metabolic acidosis, hyperkalemia, acute on chronic kidney disease. Thank you for this consultation. We will follow with you. Job ID: [id number]
[2020-09-13] MEDS: Enoxaparin Sodium 80 MG/0.8 ML SYRINGE SC SCH (21:14)
[2020-09-13] MEDS: Sodium Bicarbonate 150 MEQ in Dextrose 5% in Water 1,000 ML IV SCH (22:23)
--- NOTE | 2020-09-13 22:30 | CON ---
DATE OF CONSULTATION: 09/13/2020 HISTORY OF PRESENT ILLNESS: Mr. Centeno is a well-known patient of ours, seen most recently in our clinic in August 19, 2020. Currently, he is intubated on the critical care unit at [facility] after earlier today suffering [id number] cardiac arrest with multiple ICD therapies. He has been admitted and found to have COVID positive with white count of 43.7, hemoglobin 7.8, lactate 12.0, as well as a variety of other issues including metabolic acidosis, shock liver, KIM, etc. He carries a longstanding history of nonischemic cardiomyopathy with EF in 2019 of 15% to 20%. Dr. Isaiah Howard implanted [employer] EQUIPMENT TESTER-D in December of 2019, with only minimal improvement in EF post implant. He has history of atrial fibrillation with amiodarone and Eliquis long-term as well as typical atrial flutter. His cardiac care was managed by Dr. Aamir Reis, line construction supervisor at [facility] in [place]. Interrogation of his EQUIPMENT TESTER-D by myself at bedside shows that he had developed persistent atrial fibrillation over the last 24 to 48 hours. As well He had multiple episodes of VT and VF today. He had several ICD shocks earlier today for both (inappropriate) AF w/RVR and VT/VF. I have reviewed all of the tracings, 95 episodes in total, the majority of the episodes are atrial fibrillation with an RVR that unfortunately fell into the VT zone causing inappropriate ICD shocks. One of the ICD therapies (stim) actually accelerated AF with RVR into VT subsequently requiring repeat ICD therapy. There are several other episodes of what appear to be VT and VF on the device as well. He had ACLS by EMS providers and then again in the ER. He was subsequently intubated and put on a variety of medications including pressors in the ICU. He has already been seen by Cardiology, Neurology, Pulmonary/Critical Care, by Internal Medicine Service, and Nephrology Service. At the time of my dictation, he is intubated and currently with a sinus rhythm and biventricular pacing. PAST MEDICAL HISTORY: 1. Nonischemic cardiomyopathy with ejection fraction 15% to 20% by most recent echo. 2. Paroxysmal atrial fibrillation - on amiodarone and Eliquis. 3. Typical atrial flutter - CTI performed in January [address] Lamar. 4. Dyslipidemia. 5. Lymphoma - by our last note was actually in remission, may have had a recent recurrence. 6. Hypertension. MEDICATIONS: His home medications included; 1. Eliquis 5 mg b.i.d. 2. Entresto 24/ b.i.d. 3. Glipizide 5 mg daily. 4. Lasix 40 mg b.i.d. 5. Lovastatin 20 mg at bedtime. 6. Metformin 500 mg daily. 7. Prilosec 20 mg daily. 8. Amiodarone 200 mg daily. 9. Potassium 20 mEq b.i.d. SOCIAL HISTORY: He is and has multiple children, who are involved in his care. REVIEW OF SYSTEMS: Currently unobtainable. The patient is intubated and sedated. PHYSICAL EXAMINATION: Limited due to COVID-19 status. Vitals: blood pressure 98/69, pulse of 98, and O2 saturation 100% on intubation. Telemetry, sinus rhythm with biventricular pacing. LABORATORY DATA: As per HPI. White count elevated atraumatically, hemoglobin 8.7, lactate markedly elevated. Chest x-ray and CT of the chest notable for increased pulmonary vasculature. IMPRESSION: 1. Cardiac arrest with multiple defibrillator shocks and prolonged cardiopulmonary resuscitation both by EMS and then again in the ER. 2. Nonischemic cardiomyopathy with EF 20% prior to hospitalization. 3. [employer] EQUIPMENT TESTER-D implanted. 4. Paroxysmal atrial fibrillation - most recently developed persistent AF w/RVR in the VT zone causing ICD shocks, now in sinus rhythm after multiple shocks. 5. COVID-19 positive. 6. Acute on chronic kidney failure. 7. Elevated LFTs, likely secondary to above. PLAN: Case discussed with hospital team. Currently, his ICD therapies have been discontinued as it would be impossible to program him to avoid inappropriate ICD shocks for AFib with RVR in the VT zone, while also maintaining an appropriate VT zone to provide ICD therapies. Therefore, we will disable tachy therapies for the moment, we have left all of his pacing parameters in place. We will continue to follow along. Given his prolonged period of time requiring CPR, he has a poor prognosis currently. Family members have been involved in the care, they currently request full code. We will continue to follow along for now. Further recommendations as clinical course dictates. Job ID: [id number] [facility]
[2020-09-14] MEDS: Norepinephrine 8 MG/0.9% NS 250 ML IVPB PRN ×7 (00:14→23:16)
[2020-09-14] MEDS: VANCOMYCIN 1.25 GM/250 ML BAG 1.25 GM in Premix Bag 1 BAG IVPB SCH (03:35)
[2020-09-14 04:23] LABS: Band 18 % (5-11); Hemoglobin 8.7 g/dL (14.0-18.0); Lymphocytes 1 % (21-51); MDiff Complete? YES; Mean Corpuscular HGB CONC 30.8 g/dL (32.0-36.0); Mean Corpuscular Hemoglobin 29.7 pg (27.0-31.0); Mean Corpuscular Volume 96.3 fL (78.0-98.0); Mean Platelet Volume 11.1 fL (7.4-10.4); Monocytes 1 % (0-10); Neutrophil 80 % (42-75); Platelet Count 206 thou/uL (130-400); Platelet Morphology Comment Appears Adequate; RBC Distribution Width 16.8 % (11.5-14.5); Red Blood Cell (RBC) Count 2.94 mill/uL (4.70-6.10)
[2020-09-14 04:35] LABS: Anion Gap 23 mmol/L (10-20); BUN (Urea Nitrogen) 38 mg/dL (8.4-25.7); Calc. Creatinine Clearance 26 mL/min (70-130); Calcium 7.6 mg/dL (7.8-10.44); Carbon Dioxide 19 mmol/L (23-31); Chloride 98 mmol/L (98-107); Glucose 446 mg/dL (80-115); Potassium 4.5 mmol/L (3.5-5.1); Sodium 135 mmol/L (136-145)
[2020-09-14] MEDS: Piperacillin/Tazobactam 4.5 GM in Sodium Chloride 0.9% 100 ML IVPB SCH ×3 (05:11→21:40)
[2020-09-14] MEDS: Sodium Bicarbonate 150 MEQ in Dextrose 5% in Water 1,000 ML IV SCH (06:44)
[2020-09-14 07:28] LABS: Actual Bicarbonate (HCO3a) 19.4 mEq/L (22-28); Base Excess (BEa) -3.4 mEq/L (-2.0 to +3.0); CO2 Tension 27.2 mmHg (35.0-45.0); Calcium, Ionized (arterial) 0.98 mmol/L (1.12-1.30); Carboxyhemoglobin (COHb) 0.3 gm% (0.0-3.0); Hemoglobin (Hb) 9.8 g/dL (14.0-18.0); pH, Arterial 7.47 (7.35-7.45)
[2020-09-14 07:37] LABS: Puncture Site RBA
[2020-09-14] MEDS: Enoxaparin Sodium 80 MG/0.8 ML SYRINGE SC SCH ×3 (09:37→20:04)
--- NOTE | 2020-09-14 12:10 | CT ---
CT BRAIN WITHOUT CONTRAST: Date: 09/14/2020 HISTORY: Anoxic brain injury. COMPARISON: None. FINDINGS: There is loss of brar matter differentiation with compression of the ventricles and basilar cisterns. There is prominence of the vessels. There is suggestion of a pseudosubarachnoid hemorrhage sign whic h demonstrates increased density in the basilar cisterns, (though the possibility of some acute subar achnoid hemorrhage cannot be completely excluded). No midline shift or abnormal extra-axial fluid col lections are seen. The bony calvarium is intact. There is soft tissue calcification in the left scalp close to the vertex. IMPRESSION: Findings are consistent with diffuse hypoxic brain injury. Findings discussed over the phone with Dr. Celis at 0911 hours. CODE CR. POS: OFF
--- NOTE | 2020-09-14 13:11 | PDOC.BPN ---
- Brief Progress Note Encounter Date: 09/14/20 HCT reviewed and discussed with radiology. HCT findings consistent with anoxic brain injury. Results communicated to primary attending Dr. Muñoz . Signs of functional meaningful recovery seems poor based on exam and HCT results. Palliative care consult and primary team should address the code status with the family based on the results of the recent imaging. Consider neurosurgery input regarding HCT findings.
--- NOTE | 2020-09-14 15:24 | PDOC.HOSPP ---
- Subjective Encounter Date: 09/14/20 Encounter Time: 10:00 Subjective: Patient seen this morning. He is on the vent. Levophed continued. off fentanyl. Repeat CT scan showed loss of brar matter differentiation with compression of the ventricles and basilar cisterns and the possibility of acute subarachnoid hemorrhage. Patient with no ocular reflex and no meaningful neurological recovery. Possible decortication. Discussed with RN. Talk to the neurosurgery. - Objective Vital Signs & Weight: Vital Signs (12 hours) Temp Pulse Resp Pulse Ox 09/14/20 14:27 99 09/14/20 14:00 24 H 09/14/20 12:00 98.6 F 24 H 09/14/20 11:02 99 09/14/20 10:00 24 H 09/14/20 08:00 99 F 24 H 100 09/14/20 07:39 100 09/14/20 06:00 30 H 09/14/20 04:00 96.9 F L 30 H Weight Admit Weight 178 lb 5.663 oz Weight 178 lb 5.663 oz Most Recent Monitor Data Heart Rate from ECG 101 NIBP 92/54 NIBP BP-Mean 66 Respiration from ECG 24 SpO2 100 I&O: 09/13/20 09/14/20 09/15/20 06:59 06:59 06:59 Intake Total 2615.10 100 Output Total 630 385 Balance 1985.10 -285 Result Diagrams: 09/14/20 03:50 09/14/20 03:50 Hospitalist ROS - Medication Medications: Active Medications Generic Name Dose Route Start Last Admin Trade Name Freq PRN Reason Stop Dose Admin Enoxaparin Sodium 80 mg 09/13/20 21:00 09/14/20 10:07 Enoxaparin Sodium 80 Mg/0.8 Ml Syringe SC Not Given 0900,2100 MATEO Norepinephrine Bitartrate 250 mls @ 0 mls/hr 09/13/20 01:02 09/14/20 12:38 Levophed IVPB 250 mls PRN PRN Administration To maintain MAP > 65 Protocol Titrate Piperacillin Sod/Tazobactam 100 mls @ 200 mls/hr 09/13/20 06:00 09/14/20 14:06 Sod 4.5 gm/ Sodium Chloride IVPB 100 mls Q8HR MATEO Administration Vancomycin HCl 1.25 gm/ Device 250 mls @ 166.67 mls/hr 09/14/20 04:00 09/14/20 03:35 IVPB 250 mls Q24HR@0400 MATEO Administration Sodium Bicarbonate 150 meq/ 1,150 mls @ 125 mls/hr 09/13/20 19:01 09/14/20 06:44 Dextrose/Water IV 1,150 mls INF MATEO Administration Propofol 20 mg 09/13/20 01:15 09/13/20 01:42 Propofol Bolus 1,000 Mg/100 Ml Vial IV 10/13/20 01:15 20 mg Q5MIN PRN Administration BREAKTHROUGH AGITATION Sodium Chloride 10 ml 09/13/20 09:00 09/14/20 09:37 Flush - Normal Saline 10 Ml Syringe IVF 10 ml Q12HR MATEO Administration Hospitalist Exam Vitals: Vital Signs (12 hours) Temp Pulse Resp Pulse Ox 09/14/20 14:27 99 09/14/20 14:00 24 H 09/14/20 12:00 98.6 F 24 H 09/14/20 11:02 99 09/14/20 10:00 24 H 09/14/20 08:00 99 F 24 H 100 09/14/20 07:39 100 09/14/20 06:00 30 H 09/14/20 04:00 96.9 F L 30 H Weight Admit Weight 178 lb 5.663 oz Weight 178 lb 5.663 oz Most Recent Monitor Data Heart Rate from ECG 101 NIBP 92/54 NIBP BP-Mean 66 Respiration from ECG 24 SpO2 100 General Appearance: ill appearing General - other findings: On vent ENT: normocephalic atraumatic Neck: supple Heart: RRR Gastrointestinal: normal bowel sounds Extremities: no cyanosis Neurological: no new deficit, speech deficit, vision deficit Psychiatric: not oriented, lethargic Hosp A/P - Plan 70-year-old male patient with a history of heart failure with reduced ejection fraction, AICD in place, CKD, recently diagnosed with lymphoma on chemotherapy recent Covid diagnosis, was brought into the ED on account of cardiac arrest. ROSC was achieved and is currently on ventilator and pressor support. Cardiac arrest -Prolonged CPR -Possible anoxic brain injury Possible arrhythmia as requested that his AICD fired. Continue ventilator support -On pressors CTA to evaluate for PEnegative PE Received hypothermia Acute hypoxic respiratory failure Hypoxia could be due to pulmonary edema, pneumonia due to Covid, bacterial pneumonia --On vent Pneumonia due to Covid Patient Covid positive with bilateral infiltrates Start steroids Vitamin C/D and zinc CRP, ferritin and D-dimer Consider remdesivir/plasma Hyperkalemia Severe metabolic acidosis Secondary to lactic acidosis -Renal following with Septic shock --Follow-up with blood cultures --vancomycin and Zosyn -On pressor Heart failure with reduced ejection fraction EF in the 20s -Dr. Dr. Howard's group -likely they will see him this afternoon A. fib Currently not in RVR -eilquis Recently diagnosed lymphoma Currently receiving chemotherapy . General poor clinical prognosis -I have seen the daughter this morning -Will update her as the clinical course evolves -Full code for now. -Palliative consult placed by the admitter -Neurology consult to evaluate for possible anoxic brain injury 7th Repeat CT scan showed loss of brar matter differentiation with compression of the ventricles and basilar cisterns and the possibility of acute subarachnoid hemorrhage. Patient with no meaningful neurological recovery. Possible decortication. EEG cannot be performed due to the Covid pneumonia and isolation. talk to the family, daughter at length, and she had plenty of questions. all answered to the best of my ability. [phone]. she wants to know whether her family can visit him. will check with the charge nurse regarding COVID policy.
--- NOTE | 2020-09-14 15:31 | PRG ---
DATE OF SERVICE: 09/14/2020 SUBJECTIVE: Mr. Centeno remains mechanically ventilated in the critical care unit. CT was done of his head today showing loss of brar-white matter differentiation. OBJECTIVE: VITAL SIGNS: Heart rates in the 90s. FiO2 is at 45. Blood pressure is 94/53. General: Still has some spontaneous movement when he is stimulated. LUNGS: Remarkable for equal breath sounds. HEART: Regular rhythm. ABDOMEN: Soft and nontender. EXTREMITIES: Without edema. LABORATORY DATA: White count 19, hemoglobin 8.7, platelets 206, creatinine has gone from 2 to 3.2, potassium 4.5. IMPRESSION: Severe anoxic brain injury after an ejk-nh-dztkxcez arrest. Chances for functional recovery or even survival extremely small. Withdrawal of care would not be unreasonable. Critical care time 30 min. Job ID: [id number] MTDD
--- NOTE | 2020-09-14 15:55 | CON ---
DATE OF CONSULTATION: 09/14/2020 HISTORY OF PRESENT ILLNESS: The patient is a 70-year-old male with a past medical history of CHF, atrial fibrillation, lymphoma, diabetes, hypertension. Recent positive test for COVID, who was brought to the emergency department on 09/12/2020 for acute onset chest pain as well as several defibrillator shocks. During transport, the patient became unresponsive and pulseless, requiring CPR and defibrillation several times. He was intubated and sedated and ultimately admitted to the Medicine Service with consultations for Cardiology, Neurology, Critical Care, and Nephrology. Since his admission, he has had very poor neurologic status. A CT was obtained this morning which appears consistent with anoxic brain injury. Neurosurgery was consulted for evaluation of the patient. PAST MEDICAL HISTORY: Congestive heart failure; lymphoma, on chemotherapy; diabetes; hypertension; atrial fibrillation; recent COVID positive diagnosis. FAMILY HISTORY: Currently unobtainable. SOCIAL HISTORY: Currently unobtainable. REVIEW OF SYSTEMS: Currently unobtainable. PHYSICAL EXAMINATION: VITAL SIGNS: Currently stable. The patient is being mechanically ventilated and afebrile. CONSTITUTIONAL: Currently intubated. Not currently on any sedation since morning. HEAD: Normocephalic and atraumatic. EYES: Pupils are fixed, dilated, and nonreactive. Corneal reflex is absent. ENT: Endotracheal tube is in place. No gag reflex is noted. CHEST: Symmetric chest expansion. The patient is currently being mechanically ventilated. He is not overbreathing the ventilator. CARDIAC: Regular rhythm. MUSCULOSKELETAL: Symmetric pulses. SKIN: Warm. No obvious deformities. NEUROLOGIC: GCS of 3. He does not open his eyes. He is currently intubated. No motor function is appreciated to any sort of noxious stimuli. ASSESSMENT AND PLAN: This is a 70-year-old COVID positive male with a history of atrial fibrillation and CHF, who had suffered cardiac arrest and has had poor neurologic exam since this event. His recent CT head shows massive anoxic brain injury. This is consistent with exam findings which are quite poor. The neurologic prognosis is poor and we are not recommending any neurosurgical intervention. We would recommend Palliative Care meet with family. No further neurosurgical recommendations at this time. Job ID: [id number]
[2020-09-14] MEDS ORDERED: Digoxin 0.5 MG/2 ML AMP SLOW IVP SCH (19:15)
[2020-09-14] MEDS ORDERED: Sodium Chloride 0.9% 1,000 ML IV SCH ×2 (19:15→19:30)
[2020-09-14] MEDS ORDERED: Metoprolol Tartrate 5 MG/5 ML VIAL IVP SCH (20:15)
[2020-09-14] MEDS: Sodium Chloride 0.45% 1,000 ML IV SCH (20:19)
[2020-09-15] MEDS: Norepinephrine 8 MG/0.9% NS 250 ML IVPB PRN ×2 (03:28→08:28)
[2020-09-15] MEDS: VANCOMYCIN 1.25 GM/250 ML BAG 1.25 GM in Premix Bag 1 BAG IVPB SCH (03:28)
[2020-09-15] MEDS ORDERED: Amiodarone In Dextrose 200 ML IVPB SCH (04:00)
[2020-09-15] MEDS ORDERED: Amiodarone 150 MG, Admixture Fee 1 EACH in Dextrose 5% in Water 100 ML IVPB SCH (04:00)
[2020-09-15 04:45] LABS: Anion Gap 23 mmol/L (10-20); BUN (Urea Nitrogen) 45 mg/dL (8.4-25.7); Band 19 % (5-11); Calc. Creatinine Clearance 18 mL/min (70-130); Calcium 6.8 mg/dL (7.8-10.44); Carbon Dioxide 20 mmol/L (23-31); Chloride 101 mmol/L (98-107); Glucose 303 mg/dL (80-115); Hemoglobin 8.4 g/dL (14.0-18.0); Hypochromia SLIGHT = 6-15 cells (100X) (0-5/hpf); Lymphocytes 1 % (21-51); MDiff Complete? YES; Mean Corpuscular HGB CONC 31.4 g/dL (32.0-36.0); Mean Corpuscular Hemoglobin 30.2 pg (27.0-31.0); Mean Corpuscular Volume 96.1 fL (78.0-98.0); Mean Platelet Volume 11.3 fL (7.4-10.4); Monocytes 1 % (0-10); Neutrophil 78 % (42-75); Nucleated RBC 1 % (0); Platelet Count 188 thou/uL (130-400); Platelet Morphology Comment Appears Adequate; Potassium 5.7 mmol/L (3.5-5.1); RBC Distribution Width 16.8 % (11.5-14.5); Reactive Lymphocytes 1 % (0-10); Red Blood Cell (RBC) Count 2.77 mill/uL (4.70-6.10); Sodium 138 mmol/L (136-145); White Blood Cell (WBC) Count 22.9 thou/uL (4.8-10.8)
[2020-09-15] MEDS: Piperacillin/Tazobactam 4.5 GM in Sodium Chloride 0.9% 100 ML IVPB SCH ×2 (05:08→14:11)
--- NOTE | 2020-09-15 05:52 | PRG ---
DATE OF SERVICE: 09/14/2020 SUBJECTIVE: The patient was seen and examined, and from all indications it seems the patient is not doing too well. Noted with the following vital signs. OBJECTIVE: VITAL SIGNS: Blood pressure 92/54, pulse 99, FiO2 of 45%, respiratory rate of . HEENT: Remarkable for endotracheal tube in place. CARDIOVASCULAR SYSTEM: First and second heart sounds were heard. RESPIRATORY SYSTEM: Revealed vented sounds . EXTREMITIES: No significant peripheral edema. IMPRESSION: 1. Acute kidney injury in the context of prolonged cardiac arrest. 2. Prolonged cardiac arrest. 3. Possible anoxic brain injury. 4. Metabolic acidosis related to acute kidney injury. PLAN: 1. Given the likely poor prognostic outcome of this patient, I will limit the renal care to supportive measures. 2. Further management will be dependent on the clinical course. Job ID: [id number]
--- NOTE | 2020-09-15 07:56 | PRG ---
DATE OF SERVICE: 09/15/2020 SUBJECTIVE: Vinayak Centeno has no spontaneous respirations. He has no corneals. He has no gag. He has no doll's eyes. His ventilator rate was turned down to a rate of 4 and his respiratory rate was 4 with no effort whatsoever in between breaths of 4. OBJECTIVE: LUNGS: Remarkable for coarse equal breath sounds. HEART: Regular rhythm. ABDOMEN: Soft. EXTREMITIES: Without asymmetry. LABORATORY DATA: White count 22, hemoglobin 8.4, and platelets 188. Sodium 138, potassium 5.7, chloride 101, bicarb 20, BUN 45, creatinine 4.47. IMPRESSION: 1. Probable clinical brain . Nuclear perfusion study will be ordered. 2. COVID part of this. 3. Status post neq-bi-bgylyfgo arrest with loss of brar-white matter differentiation on CT. If he is not brain now, he will most likely progress to brain . 4. Progressive renal failure, not in my opinion a candidate for dialysis given his neurological condition. PLAN: Continue supportive care, awaiting nuclear brain perfusion study. Critical care time 30 min. Job ID: [id number] MTDD
[2020-09-15 08:22] VITALS: TEMP 99.4
[2020-09-15] MEDS: Sodium Chloride 0.45% 1,000 ML IV SCH (08:29)
[2020-09-15] MEDS ORDERED: Amiodarone 450 MG in Dextrose 5% in Water 250 ML IVPB SCH (11:30)
--- NOTE | 2020-09-15 12:44 | NM ---
NUCLEAR MEDICINE BRAIN CEREBRAL FLOW STUDY: HISTORY: Anoxic brain injury. RADIOPHARMACEUTICAL: 31.4 mCi Technetium 99m HNP injected intravenously. FINDINGS: No intracranial flow is seen. No tracer uptake is noted in the brain. IMPRESSION: Absent brain perfusion. POS: OFF
[2020-09-15] MEDS: Enoxaparin Sodium 80 MG/0.8 ML SYRINGE SC SCH (14:04)
[2020-09-15 14:47] VITALS: BP 82/40
--- NOTE | 2020-09-15 15:02 | PDOC.HOSPP ---
- Subjective Encounter Date: 09/15/20 Encounter Time: 10:25 Subjective: pt on the vent. Nuclear perfusion scan. Brain . talk to Dr. Howard's PA and they talk to pt's family as well. According to Mr. Albarran, CODE STATUS changed to DN AR. I talked to the daughter extensively yesterday evening discussed the repeat CT scan results. Based on my conversation with daughter, family has difficult time to accept his prognosis. - Objective Vital Signs & Weight: Vital Signs (12 hours) Temp Pulse Resp BP Pulse Ox 09/15/20 14:45 94 82/40 L 09/15/20 12:00 99.4 F 10 L 09/15/20 11:23 92 09/15/20 10:00 10 L 09/15/20 08:00 99.4 F 10 L 93 L 09/15/20 07:52 98 85/44 L 09/15/20 06:00 24 H 09/15/20 04:00 97.9 F 24 H Weight Admit Weight 178 lb 5.663 oz Weight 197 lb 15.602 oz Most Recent Monitor Data Heart Rate from ECG 94 NIBP 81/40 NIBP BP-Mean 53 Respiration from ECG 10 SpO2 92 I&O: 09/14/20 09/15/20 09/16/20 06:59 06:59 06:59 Intake Total 2615.10 4002.3 Output Total 630 1080 125 Balance 1985.10 2922.3 -125 Result Diagrams: 09/15/20 03:51 09/15/20 03:51 Hospitalist ROS - Medication Medications: Active Medications Generic Name Dose Route Start Last Admin Trade Name Freq PRN Reason Stop Dose Admin Enoxaparin Sodium 80 mg 09/13/20 21:00 09/15/20 14:04 Enoxaparin Sodium 80 Mg/0.8 Ml Syringe SC Not Given 0900,2100 MATEO Norepinephrine Bitartrate 250 mls @ 0 mls/hr 09/13/20 01:02 09/15/20 08:28 Levophed IVPB 250 mls PRN PRN Administration To maintain MAP > 65 Protocol Titrate Piperacillin Sod/Tazobactam 100 mls @ 200 mls/hr 09/13/20 06:00 09/15/20 14:11 Sod 4.5 gm/ Sodium Chloride IVPB 100 mls Q8HR MATEO Administration Vancomycin HCl 1.25 gm/ Device 250 mls @ 166.67 mls/hr 09/14/20 04:00 09/15/20 03:28 IVPB 250 mls Q24HR@0400 MATEO Administration Sodium Chloride 1,000 mls @ 100 mls/hr 09/14/20 20:15 09/15/20 08:29 1/2 Normal Saline IV 1,000 mls .Q10H MATEO Administration Amiodarone HCl 450 mg/ 259 mls @ 0 mls/hr 09/15/20 11:30 09/15/20 11:25 Dextrose/Water IVPB 259 mls INF MATEO Administration Protocol Per Protocol Propofol 20 mg 09/13/20 01:15 09/13/20 01:42 Propofol Bolus 1,000 Mg/100 Ml Vial IV 10/13/20 01:15 20 mg Q5MIN PRN Administration BREAKTHROUGH AGITATION Sodium Chloride 10 ml 09/13/20 09:00 09/15/20 14:04 Flush - Normal Saline 10 Ml Syringe IVF Not Given Q12HR [facility] Hospitalist Exam Vitals: Vital Signs (12 hours) Temp Pulse Resp BP Pulse Ox 09/15/20 14:45 94 82/40 L 09/15/20 12:00 99.4 F 10 L 09/15/20 11:23 92 09/15/20 10:00 10 L 09/15/20 08:00 99.4 F 10 L 93 L 09/15/20 07:52 98 85/44 L 09/15/20 06:00 24 H 09/15/20 04:00 97.9 F 24 H Weight Admit Weight 178 lb 5.663 oz Weight 197 lb 15.602 oz Most Recent Monitor Data Heart Rate from ECG 94 NIBP 81/40 NIBP BP-Mean 53 Respiration from ECG 10 SpO2 92 General Appearance: ill appearing General - other findings: on vent, Eye: PERRL ENT: normocephalic atraumatic Neck: supple Neurological: speech deficit, vision deficit Psychiatric: not oriented Hosp A/P - Plan 70-year-old male patient with a history of heart failure with reduced ejection fraction, AICD in place, CKD, recently diagnosed with lymphoma on chemotherapy recent Covid diagnosis, was brought into the ED on account of cardiac arrest. ROSC was achieved and is currently on ventilator and pressor support. Cardiac arrest -Prolonged CPR -Possible anoxic brain injury Possible arrhythmia as requested that his AICD fired. Continue ventilator support -On pressors CTA to evaluate for PEnegative PE Received hypothermia Acute hypoxic respiratory failure Hypoxia could be due to pulmonary edema, pneumonia due to Covid, bacterial pneumonia --On vent Pneumonia due to Covid Patient Covid positive with bilateral infiltrates Start steroids Vitamin C/D and zinc CRP, ferritin and D-dimer Consider remdesivir/plasma Hyperkalemia Severe metabolic acidosis Secondary to lactic acidosis -Renal following with Septic shock --Follow-up with blood cultures --vancomycin and Zosyn -On pressor Heart failure with reduced ejection fraction EF in the 20s -Dr. Dr. Howard's group -likely they will see him this afternoon A. fib Currently not in RVR -eilquis Recently diagnosed lymphoma Currently receiving chemotherapy . General poor clinical prognosis -I have seen the daughter this morning -Will update her as the clinical course evolves -Full code for now. -Palliative consult placed by the admitter -Neurology consult to evaluate for possible anoxic brain injury 7th Repeat CT scan showed loss of brar matter differentiation with compression of the ventricles and basilar cisterns and the possibility of acute subarachnoid hemorrhage. Patient with no meaningful neurological recovery. Possible decortication. EEG cannot be performed due to the Covid pneumonia and isolation. talk to the family, daughter at length, and she had plenty of questions. all answered to the best of my ability. [phone]. she wants to know whether her family can visit him. will check with the charge nurse regarding COVID policy. 8th talk to Dr. Howard's PA and they talk to pt's family as well. According to Mr. Albarran, CODE STATUS changed to DN AR. I talked to the daughter extensively yesterday evening discussed the repeat CT scan results. Based on my conversation with daughter, family has difficult time to accept his prognosis. Severe anoxic brain injury Absent brain perfusion per nuclear medicine brain cerebral flow study. Palliative care following with us. DN AR Try to reach the family to update the nuclear medicine study. No one is picking up the home phone--trying to reach them at [phone] They probably want to come and see the patient Hopefully we would be able to allow at least 3 visitors.
--- NOTE | 2020-09-15 15:39 | PDOC.BPN ---
- Brief Progress Note I talk to the daughter few times, first in person and couple of times over the phone. talk to the daughter and updated her in simple terms, regarding perfusion study ' basically brain ' and they need to come and see him [ so we can withdraw the care.] Daughter wants an update from critical care. I told them to visit as soon as they can, and she is wondering whether she can come tomorrow !!!!
[2020-09-15 16:10] VITALS: BMI 29.2
--- NOTE | 2020-09-15 18:17 | PRG ---
DATE OF SERVICE: 09/15/2020 SUBJECTIVE: The patient is seen still on life support noted with the following vital signs. OBJECTIVE: VITAL SIGNS: Heart rate 94, blood pressure 82/39, O2 saturations of 93%. HEENT: Remarkable for endotracheal tube in place. CARDIOVASCULAR SYSTEM: First and second heart sounds were heard. RESPIRATORY SYSTEM: Revealed vented sounds. IMPRESSION: 1. Acute on chronic kidney disease in the context of cardiac arrest. 2. Brain . PLAN: There is no indication for renal replacement therapy (hemodialysis) given the fact that this patient has been deemed to be brain . Job ID: [id number]
--- NOTE | 2020-09-16 11:40 | PDOC.DS.DS ---
Provider Date of Admission: 09/12/20 23:53 Admitting Provider: Brady Hobson MD Primary Care Physician: Joan Montana PA-C Course Hospital Course: 70-year-old male patient with a history of heart failure with reduced ejection fraction, AICD in place, CKD, recently diagnosed with lymphoma on chemotherapy recent Covid diagnosis, was brought into the ED on account of cardiac arrest. ROSC was achieved and is currently on ventilator and pressor support. Cardiac arrest -Prolonged CPR -Possible anoxic brain injury Possible arrhythmia as requested that his AICD fired. Continue ventilator support -On pressors CTA to evaluate for PEnegative PE Received hypothermia Acute hypoxic respiratory failure Hypoxia could be due to pulmonary edema, pneumonia due to Covid, bacterial pneumonia --On vent Pneumonia due to Covid Patient Covid positive with bilateral infiltrates Start steroids Vitamin C/D and zinc CRP, ferritin and D-dimer Consider remdesivir/plasma Hyperkalemia Severe metabolic acidosis Secondary to lactic acidosis -Renal following with Septic shock --Follow-up with blood cultures --vancomycin and Zosyn -On pressor Heart failure with reduced ejection fraction EF in the 20s -Dr. Dr. Howard's group -likely they will see him this afternoon A. fib Currently not in RVR -eilquis Recently diagnosed lymphoma Currently receiving chemotherapy .nuclear cerebral flow scan-- no activity asystole at 1602 parimary cause cardiac arrest 2ary COVID Resuscitation Status: 09/15/20 12:32 Resuscitation Status Routine Resuscitation Status: DNAR: NO Resuscitation Discussed with: family by 's gp Lab Results: 09/15/20 03:51 09/15/20 03:51 Abnormal Lab Results - Last 48 hrs 09/15/20 03:51: Potassium 5.7 H, Carbon Dioxide 20 L, Anion Gap 23 H, BUN 45 H, Creatinine 4.47 H, Calcium 6.8 L 09/15/20 03:51: WBC 22.9 H, RBC 2.77 L, Hgb 8.4 L, Hct 26.6 L, MCHC 31.4 L, RDW 16.8 H, MPV 11.3 H, Neutrophils % (Manual) 78 H, Band Neuts % (Manual) 19 H, Lymphocytes % (Manual) 1 L, Nucleated RBCs # (Man) 1 H Microbiology - Entire Visit 09/13/20 06:02 Venous blood - Left Hand Blood Culture - Preliminary NO GROWTH AT 48 HOURS 09/13/20 05:52 Venous blood - Right Hand Blood Culture - Preliminary NO GROWTH AT 48 HOURS Vitals: Weight Admit Weight 178 lb 5.663 oz Weight 197 lb 15.602 oz Most Recent Monitor Data Heart Rate from ECG 94 NIBP 82/39 NIBP BP-Mean 53 Respiration from ECG 10 SpO2 93 Physical Exam: The patient was seen and examined on the day of discharge. Plan Allergies: gabapentin Allergy (Verified 09/13/20 01:36) pregabalin [From Lyrica] Allergy (Verified 09/13/20 01:36) tramadol Allergy (Verified 09/13/20 01:37) Referrals: Joan Montana PA-C [Primary Care Provider] - Disposition: Quality CORE MEASURES:: N/A
== END 2020-09-15 16:02 | disposition expired | DRG 871 ==
LOC: ERS 22:21 → ERHOLD 23:53 → CCU 09-13 18:51
PROVIDERS: ADMIT Student in an Organized Health Care Education/Training Program; ATTEND Internal Medicine
PROC: 5A1945Z Respiratory Ventilation, 24-96 Consecutive Hours (ICD-10-PCS; principal; 2020-09-12)
PROC: 3E043XZ Introduction of Vasopressor into Central Vein, Percutaneous Approach (ICD-10-PCS; 2020-09-12)
PROC: 5A2204Z Restoration of Cardiac Rhythm, Single (ICD-10-PCS; 2020-09-12)
PROC: 5A12012 Performance of Cardiac Output, Single, Manual (ICD-10-PCS; 2020-09-12)
PROC: 06HY33Z Insertion of Infusion Device into Lower Vein, Percutaneous Approach (ICD-10-PCS; 2020-09-12)
PROC: 8E0ZXY6 Isolation (ICD-10-PCS; 2020-09-12)
DX: A41.89 Other specified sepsis (principal); U07.1 COVID-19; J96.01 Acute respiratory failure with hypoxia; J12.82 Pneumonia due to coronavirus disease 2019; J15.9 Unspecified bacterial pneumonia; R65.21 Severe sepsis with septic shock; K72.00 Acute and subacute hepatic failure without coma; G93.5 Compression of brain; G93.1 Anoxic brain damage, not elsewhere classified; I50.22 Chronic systolic (congestive) heart failure; C85.90 Non-Hodgkin lymphoma, unspecified, unspecified site; E87.2 Acidosis; N17.9 Acute kidney failure, unspecified; I13.0 Hypertensive heart and chronic kidney disease with heart failure and stage 1 through stage 4 chronic kidney disease, or unspecified chronic kidney disease; E87.1 Hypo-osmolality and hyponatremia; I42.8 Other cardiomyopathies; I47.2 Ventricular tachycardia; I48.19 Other persistent atrial fibrillation; I49.9 Cardiac arrhythmia, unspecified; I46.8 Cardiac arrest due to other underlying condition; I49.01 Ventricular fibrillation; K76.1 Chronic passive congestion of liver; E11.22 Type 2 diabetes mellitus with diabetic chronic kidney disease; Z66 Do not resuscitate; N18.9 Chronic kidney disease, unspecified; E78.5 Hyperlipidemia, unspecified; E87.5 Hyperkalemia; Z95.810 Presence of automatic (implantable) cardiac defibrillator; Z88.8 Allergy status to other drugs, medicaments and biological substances; Z78.1 Physical restraint status; Z79.899 Other long term (current) drug therapy; Z79.84 Long term (current) use of oral hypoglycemic drugs; Z79.01 Long term (current) use of anticoagulants; Z90.5 Acquired absence of kidney; Z88.5 Allergy status to narcotic agent
CPT/HCPCS: 0240U; 36415; 36416; 36556; 36600; 51702; 70450; 71045; 71275; 78610; 80048; 80053; 81003; 81015; 82553; 82805; 83605; 83735; 84484; 85025; 87040; 93005; 93010; 94002; 94003; 94760; 96365; 96366; 96368; 96374; 96375; 96376; 99292; A9521; J0171; J0282; J1160; J1650; J1815; J2001; J2060; J2543; J2704; J3010; J3370; J3490; J7070; Q9967